=== PATIENT | female | born 1950 ===

== ENCOUNTER 2021-08-13 15:24 | Inpatient (IN) | payer OTHER ==
[~2021-08-13] VITALS: Ht 172.7 cm; Wt 97.9 kg
[2021-08-13 18:34] LABS: Basophils # (auto) 0.1 10 ^3/uL (0-0.2); Basophils % (auto) 1.3 % (0.0-2.0); Eosinophils # (auto) 0.3 10 ^3/uL (0-0.8); Eosinophils % (auto) 3.3 % (0.0-7.0); Hematocrit 41.1 % (36.0-46.0); Hemoglobin 14.2 g/dL (12.2-16.2); Lymphocytes # (auto) 1.7 10 ^3/uL (0.4-5.4); Lymphocytes % (auto) 17.1 % (10.0-50.0); Mean Corpuscular Hemoglobin 30.9 pg (28.0-32.0); Mean Corpuscular Hgb Conc. 34.7 g/dL (32.0-36.0); Mean Corpuscular Volume 89.2 fL (80.0-100.0); Monocytes # (auto) 0.6 10 ^3/uL (0-1.3); Monocytes % (auto) 6.5 % (0.0-12.0); Neutrophils % (auto) 71.8 % (37.0-80.0); Nucleated Red Blood Cells % 0.3 %; Red Blood Cells 4.61 10^6/uL (4.0-5.20); Red Cell Distribution Width 13.3 % (11.8-14.3); White Blood Cell 9.8 10^3/uL (4.4-10.8)
[2021-08-13 18:49] LABS: Albumin 3.5 g/dL (3.4-5.0); Calcium 10.2 mg/dL (8.5-10.1); Potassium 3.7 mmol/L (3.5-5.1)
[2021-08-13 18:52] LABS: INR 0.99 (0.9-1.15); Partial Thromboplastin Time 25.4 sec (23.6-33.0)
[2021-08-13 18:55] LABS: BUN/Creatinine Ratio 26.2; Bilirubin, Total 0.6 mg/dL (0.2-1.0); Total Protein 7.3 g/dL (6.4-8.2)
[2021-08-14] MEDS ORDERED: SODIUM CHLORIDE 0.9% 1,000 ML IV SCH (06:00)
[2021-08-14] MEDS ORDERED: MORPHINE SULFATE 4 MG/ML SYR/VIAL IV PRN (06:00)
[2021-08-14] MEDS ORDERED: ONDANSETRON HCL 4 MG/2 ML VIAL IV PRN (06:00)
[2021-08-14] MEDS ORDERED: LISINOPRIL 5 MG TAB PO ONE (10:45)
[2021-08-14] MEDS ORDERED: HYDROcodone-ACET 5/325MG TAB PO PRN (10:45)
[2021-08-14] MEDS ORDERED: MORPHINE SULFATE INJECTION 2 MG/ML SYRG IV PRN (10:45)
[2021-08-14] MEDS ORDERED: CALCIUM W/VIT D (600MG/400IU) TAB PO ONE (13:15)
[2021-08-14] MEDS ORDERED: LISI-275 PO (16:13)
[2021-08-14 22:00] VITALS: BP 145/92
[2021-08-15 05:00] VITALS: BP 155/87
[2021-08-15 07:00] LABS: Basophils # (auto) 0.1 10 ^3/uL (0-0.2); Eosinophils # (auto) 0.5 10 ^3/uL (0-0.8); Eosinophils % (auto) 7.7 % (0.0-7.0); Hematocrit 36.6 % (36.0-46.0); Hemoglobin 12.8 g/dL (12.2-16.2); Lymphocytes # (auto) 1.7 10 ^3/uL (0.4-5.4); Lymphocytes % (auto) 24.7 % (10.0-50.0); Mean Corpuscular Hemoglobin 31.5 pg (28.0-32.0); Mean Corpuscular Hgb Conc. 34.9 g/dL (32.0-36.0); Mean Corpuscular Volume 90.2 fL (80.0-100.0); Monocytes # (auto) 0.6 10 ^3/uL (0-1.3); Neutrophils # (auto) 4.1 10 ^3/uL (1.6-8.6); Neutrophils % (auto) 58.6 % (37.0-80.0); Nucleated Red Blood Cells % 0.1 %; Red Blood Cells 4.06 10^6/uL (4.0-5.20); Red Cell Distribution Width 13.2 % (11.8-14.3)
[2021-08-15 07:05] LABS: Calcium 8.9 mg/dL (8.5-10.1); Potassium 3.6 mmol/L (3.5-5.1)
[2021-08-15 07:07] LABS: BUN/Creatinine Ratio 32.7
[2021-08-15 09:00] VITALS: BP 157/70
[2021-08-15] MEDS ORDERED: ceFAZolin 1GM/50ML 100 ML IV ONE (09:29)
[2021-08-15] MEDS ORDERED: CALCIUM W/VIT D (600MG/400IU) TAB PO SCH (10:00)
[2021-08-15] MEDS ORDERED: LISINOPRIL 5 MG TAB PO SCH (10:00)
[2021-08-15] MEDS ORDERED: fentaNYL CITRATE 100 MCG/2 ML VL ONE (10:38)
[2021-08-15] MEDS ORDERED: MIDAZOLAM HCL 2MG/2ML 2ml VIAL (1mg/ml) ONE (10:39)
[2021-08-15] MEDS ORDERED: ceFAZolin 1GM/50ML 50 ML IV SCH ×2 (12:00→18:00)
[2021-08-15] MEDS ORDERED: ONDANSETRON HCL 4 MG/2 ML VIAL IV PRN (12:30)
[2021-08-15] MEDS ORDERED: ONDANSETRON HCL 4 MG/2 ML VIAL ONE (12:35)
[2021-08-15] MEDS ORDERED: PROPOFOL 10 MG/ML 20 ML IV ONE (12:36)
[2021-08-15] MEDS ORDERED: LIDOCAINE 2% (LOCAL ANESTH.) PF 5ml SDV ONE (12:36)
[2021-08-15] MEDS: HYDROmorphone HCL 2 MG/ML VL IV PRN ×2 (12:50→13:03)
[2021-08-15] MEDS ORDERED: hydrALAZINE HCL 20 MG/ML VL ONE (13:20)
[2021-08-15] MEDS ORDERED: hydrALAZINE HCL 20 MG/ML VL IV ONE (13:20)
[2021-08-15 17:20] VITALS: BP 124/84
== END 2021-08-15 20:33 | disposition home or self-care (01) | DRG 511 ==
LOC: ER 15:24 → OVERFLOW 08-14 05:58 → TELE-WESTW 08-14 14:55
PROVIDERS: ADMIT Nurse Practitioner; ATTEND Hospitalist
PROC: 0PSJ04Z Reposition Left Radius with Internal Fixation Device, Open Approach (ICD-10-PCS; principal; 2021-08-15 10:39)
DX: S52.592A Other fractures of lower end of left radius, initial encounter for closed fracture (principal); S42.491A Other displaced fracture of lower end of right humerus, initial encounter for closed fracture; S42.91XA Fracture of right shoulder girdle, part unspecified, initial encounter for closed fracture; S62.102A Fracture of unspecified carpal bone, left wrist, initial encounter for closed fracture; E66.9 Obesity, unspecified; I11.9 Hypertensive heart disease without heart failure; M85.80 Other specified disorders of bone density and structure, unspecified site; W01.0XXA Fall on same level from slipping, tripping and stumbling without subsequent striking against object, initial encounter; Z20.822 Contact with and (suspected) exposure to COVID-19; Y93.89 Activity, other specified; Y92.007 Garden or yard of unspecified non-institutional (private) residence as the place of occurrence of the external cause; Z68.32 Body mass index [BMI] 32.0-32.9, adult; Z80.49 Family history of malignant neoplasm of other genital organs; Z90.710 Acquired absence of both cervix and uterus; Y99.8 Other external cause status
CPT/HCPCS: 36415; 71045; 73030; 73070; 73100; 73110; 73200; 76000; 80048; 80053; 84484; 85025; 85610; 85730; 86850; 86900; 86901; 87081; 87426; 93005; 93306; 96360; G0378; J0690; J2001; J2250; J2405; J2704